=== PATIENT | female | born 1955 | race Caucasian/White ===

== ENCOUNTER 2017-03-06 11:51 | Inpatient (IN) | payer OTHER ==
[2017-03-06] MEDS ORDERED: Sodium Chloride 0.9% 1,000 ML IV ONE ×3 (13:08→16:01)
[2017-03-06] MEDS ORDERED: Sodium Chloride 0.9% 1,000 ML ONE ×2 (13:22→14:16)
[2017-03-06 13:43] LABS: BASO # 0.1 K/uL (0.0-0.2); BASO % 0.5 % (0.0-2.0); EOS % 0.3 % (0.0-4.0); HEMATOCRIT 36.7 % (34.0-47.0); LYMPH # 0.9 K/uL (1.0-4.3); LYMPH % 7.4 % (20.0-40.0); MEAN CELL VOLUME 79.9 fL (81.0-99.0); MEAN CORPUSCULAR HEMOGLOBIN 26.4 pg (27.0-31.0); MEAN PLATELET VOLUME 7.3 fL (7.2-11.7); MONO # 0.7 K/uL (0.0-0.8); MONO % 6.2 % (0.0-10.0); PLATELET COUNT 344 K/uL (130-400); RED CELL DISTRIBUTION WIDTH 14.2 % (11.5-14.5); WHITE BLOOD COUNT 11.6 K/uL (4.8-10.8)
[2017-03-06 13:48] LABS: POTASSIUM 4.2 mmol/L (3.6-5.2)
[2017-03-06 13:50] LABS: ALB/GLOB RATIO 1.2 (1.0-2.1); BILIRUBIN,TOTAL 1.2 mg/dL (0.2-1.3); TOTAL PROTEIN 7.6 g/dL (6.3-8.3)
[2017-03-06 13:51] LABS: CALCIUM 8.6 mg/dl (8.6-10.4)
--- NOTE | 2017-03-06 13:56 | C.PDOC ---
History Of Present Illness 61-year-old female, presents to the emergency department with complaints of diffuse abdominal pain greatest in upper abdomen, which started one week ago after she ate "street food." Pain is intermittent and non-radiating. Patient notes associated nausea with non-bilious/non-bloody vomiting. Patient seen by Dr Josue three days ago, who prescribed Flagyl and Zofran, that patient is taking with no relief. She notes that she is unable to tolerate PO intake, and has not urinated in two days. Patient denies fever, diarrhea, chest pain, shortness of breath. Time Seen by Provider: 03/06/17 12:22 Chief Complaint (Nursing): Abdominal Pain History Per: Patient History/Exam Limitations: no limitations Onset/Duration Of Symptoms: Days Past Medical History Reviewed: Historical Data, Nursing Documentation, Vital Signs Vital Signs: Last Vital Signs Temp 97.1 F L 03/06/17 17:27 Pulse 69 03/06/17 17:27 Resp 18 03/06/17 17:27 BP 125/79 03/06/17 17:27 Pulse Ox 96 03/06/17 17:27 - Medical History PMH: HTN, Kidney Stones Family History: States: No Known Family Hx - Social History Hx Alcohol Use: No Hx Substance Use: No - Immunization History Hx Influenza Vaccination: Yes Review Of Systems Except As Marked, All Systems Reviewed And Found Negative. Constitutional: Negative for: Fever Cardiovascular: Negative for: Chest Pain, Palpitations Respiratory: Negative for: Cough, Shortness of Breath Gastrointestinal: Positive for: Nausea, Vomiting, Abdominal Pain. Negative for : Diarrhea Musculoskeletal: Negative for: Back Pain Neurological: Negative for: Weakness, Numbness Physical Exam - Physical Exam Appears: Non-toxic, No Acute Distress, Other (mildly uncomfortable) Skin: Warm, Dry, No Rash Eye(s): bilateral: Normal Inspection, PERRL Oral Mucosa: Dry Neck: Normal ROM Cardiovascular: Rhythm Regular, No Murmur Respiratory: Normal Breath Sounds, No Accessory Muscle Use Gastrointestinal/Abdominal: Soft, Tenderness (mild, epigastric. (-)[place] sign) , No Guarding, No Rebound Extremity: Normal ROM Neurological/Psych: Oriented x3 ED Course And Treatment - Laboratory Results Result Diagrams: 03/06/17 13:36 03/06/17 16:15 ECG: Interpreted By Me, Viewed By Me (NSR 66bpm, left axis deviation, no acute ST/T wave changes) ECG Interpretation: No Acute Changes O2 Sat by Pulse Oximetry: 98 (RA) Pulse Ox Interpretation: Normal - Radiology CXR: Interpreted by Me, Viewed By Me (no infiltrates/effusions) - CT Scan/US CT abd pel Other Rad Studies (CT/US): Read By Radiologist, Radiology Report Reviewed CT/US Interpretation: Accession No. : [id number]. Patient Name / ID : TRA LA / [id number]. Exam Date : 03/06/2017 15:30:29 ( Approved ). Study Comment : Sex / Age : F / 61Y. Creator : Kings Taylor MD. Dictator : Kings Taylor MD. Cracker Dough Mixer : Vehicle Operator Technician : Kings Taylor MD. Approver2 : Report Date : 03/06/2017 16:08:04. My Comment : . PROCEDURE: CT Abdomen and Pelvis without intravenous contrast. HISTORY: elevated lipase, severe abd pain. COMPARISON: None. TECHNIQUE: Without contrast.. Contrast Dose: 0. Radiation dose: Total exam DLP = 310.83 mGy-cm. This CT exam was performed using one or more of the following dose reduction techniques: Automated exposure control, adjustment of the mA and/or kV according to patient size, and/or use of iterative reconstruction technique. FINDINGS: LOWER THORAX : 6 mm noncalcified nodule right lower lobe (series 5, image 9). Indeterminate pleural thickening along diaphragmatic pleural surface with adjacent linear parenchymal scar. Uncertain significance. Possible postinflammatory. Cannot rule out neoplastic etiology. 6 mm pleural-based nodule in left lower lobe ( image 16). 6-12 month followup noncontrast chest CT examination is advised for these bilateral 6 mm nodules. Please note that there punctate granulomatous calcifications noted in the left lower lobe, only evident on soft tissue windows. Most clearly seen on series 3, image 19 in the left lower lobe. LIVER : Unremarkable. No gross lesion or ductal dilatation. GALLBLADDER AND BILE DUCTS: Unremarkable. PANCREAS: No mass. No ductal dilatation. No peripancreatic fluid. There is vague infiltration of the retroperitoneal fat common nonspecific. This could reflect pancreatitis. This is most clearly seen on series 3, image 82. This is beneath the pancreatic tail. SPLEEN: Unremarkable. ADRENALS: Unremarkable. No mass. KIDNEYS AND URETERS: Bilateral hydronephrosis. Obstructing 9 mm proximal left ureteral calculus. Obstructing 18 mm calculus likely at or just distal to the ureteropelvic junction. Milk of calcium urine in right kidney. Multiple nonobstructing small left renal calculi. No renal mass. Right hydronephrosis more severe than the left hydronephrosis. . VASCULATURE: Unremarkable. No aortic aneurysm. BOWEL: Unremarkable. No obstruction. No gross mural thickening. APPENDIX: Unremarkable. Normal appendix. PERITONEUM: Unremarkable. No free fluid. No free air. LYMPH NODES: Unremarkable. No enlarged lymph nodes. BLADDER: Bladder decompressed. REPRODUCTIVE: Right adnexal mass with numerous coarse calcifications, possibly pedunculated subserosal fibroid. This measures 2.8 x 4.4 x 5.5 cm. Cannot rule out calcified right ovarian neoplasm. Recommend further evaluation with pelvic ultrasound. BONES: No acute fracture. OTHER FINDINGS: None. IMPRESSION: Bilateral obstructing urinary calculi with bilateral hydronephrosis, right greater than left. Probable long-standing right- sided obstruction with more extensive hydronephrosis and milk of calcium urine in renal pelvis. Possible mild acute pancreatitis inferior to pancreatic tail. Calcified old granulomas left lower lobe. Bilateral small pulmonary nodules, 6 mm, for which followup noncontrast chest CT examination is advised in 6-12 months. Curvilinear pleural thickening along left diaphragmatic dome, nonspecific. Possibly postinflammatory but cannot rule out neoplastic etiology. Right adnexal mass with extensive calcification, 5.5 cm greatest dimension. Ovarian versus uterine origin. Recommend further evaluation with pelvic ultrasound. Progress Note: Bloodwork, CT Abd/Pel and UA ordered and reviewed. Patient treated with IV Pepcid, IV NS bolus x 2, and IV Zofran. Lipase noted to be elevated, and patient still having pain, IV morphine ordered. 4:36pm-Spoke w/ Dr Josue, she would like patient admitted under hospitalist service. 4:55pm- Spoke with Dr. Alarcon, he will take patient to OR for stenting in approx 1 hour. 5:15PM- Dr. France nephrology spoken with, will see patient on nephro consult. - Physician Consult Information Physician Contacted: Ross Benavidez Outcome Of Conversation: Spoke with Dr. Benavidez, agrees with admission to hospitalist service. Drs. Campbell and Dorian consulted. Critical Care Time - Critical Care Note Total Time (in mins): 40 Documented critical care: time excludes all time spent performing seperately billable procedures. Medical Decision Making Medical Decision Making: differential diagnoses considered: acute renal failure, dehydration, obstructing kidney stones/hydronephrosis, pancreatitis, cholecystitis Disposition Counseled Patient/Family Regarding: Rx Given - Disposition Disposition: HOSPITALIZED Disposition Time: 16:42 Condition: STABLE - Clinical Impression Clinical Impression: Pancreatitis, Hydronephrosis, Bilateral kidney stones, Acute renal failure, Dehydration - Scribe Statement The provider has reviewed the documentation as recorded by the Mayra Orlando All medical record entries made by the Youngibchaya were at my direction and personally dictated by me. I have reviewed the chart and agree that the record accurately reflects my personal performance of the history, physical exam, medical decision making, and the department course for this patient. I have also personally directed, reviewed, and agree with the discharge instructions and disposition.
[2017-03-06 14:04] LABS: EOSINOPHIL 1 % (0-4); NEUTROPHIL 88 % (50-75); TOTAL CELLS COUNTED 100
[2017-03-06] MEDS ORDERED: Morphine 4 MG/ML VIAL ONE ×2 (14:15→16:01)
--- NOTE | 2017-03-06 16:09 | CT ---
PROCEDURE: CT Abdomen and Pelvis without intravenous contrast HISTORY: elevated lipase, severe abd pain COMPARISON: None. TECHNIQUE: Without contrast.. Contrast Dose: 0 Radiation dose: Total exam DLP = 310.83 mGy-cm. This CT exam was performed using one or more of the following dose reduction techniques: Automated exposure control, adjustment of the mA and/or kV according to patient size, and/or use of iterative reconstruction technique. FINDINGS: LOWER THORAX: 6 mm noncalcified nodule right lower lobe (series 5, image 9). Indeterminate pleural thickening along diaphragmatic pleural surface with adjacent linear parenchymal scar. Uncertain significance. Possible postinflammatory. Cannot rule out neoplastic etiology. 6 mm pleural-based nodule in left lower lobe (image 16). 6-12 month followup noncontrast chest CT examination is advised for these bilateral 6 mm nodules. Please note that there punctate granulomatous calcifications noted in the left lower lobe, only evident on soft tissue windows. Most clearly seen on series 3, image 19 in the left lower lobe. LIVER: Unremarkable. No gross lesion or ductal dilatation. GALLBLADDER AND BILE DUCTS: Unremarkable. PANCREAS: No mass. No ductal dilatation. No peripancreatic fluid. There is vague infiltration of the retroperitoneal fat common nonspecific. This could reflect pancreatitis. This is most clearly seen on series 3, image 82. This is beneath the pancreatic tail. SPLEEN: Unremarkable. ADRENALS: Unremarkable. No mass. KIDNEYS AND URETERS: Bilateral hydronephrosis. Obstructing 9 mm proximal left ureteral calculus. Obstructing 18 mm calculus likely at or just distal to the ureteropelvic junction. Milk of calcium urine in right kidney. Multiple nonobstructing small left renal calculi. No renal mass. Right hydronephrosis more severe than the left hydronephrosis. . VASCULATURE: Unremarkable. No aortic aneurysm. BOWEL: Unremarkable. No obstruction. No gross mural thickening. APPENDIX: Unremarkable. Normal appendix. PERITONEUM: Unremarkable. No free fluid. No free air. LYMPH NODES: Unremarkable. No enlarged lymph nodes. BLADDER: Bladder decompressed. REPRODUCTIVE: Right adnexal mass with numerous coarse calcifications, possibly pedunculated subserosal fibroid. This measures 2.8 x 4.4 x 5.5 cm. Cannot rule out calcified right ovarian neoplasm. Recommend further evaluation with pelvic ultrasound. BONES: No acute fracture. OTHER FINDINGS: None. IMPRESSION: Bilateral obstructing urinary calculi with bilateral hydronephrosis, right greater than left. Probable long-standing right-sided obstruction with more extensive hydronephrosis and milk of calcium urine in renal pelvis. Possible mild acute pancreatitis inferior to pancreatic tail. Calcified old granulomas left lower lobe. Bilateral small pulmonary nodules, 6 mm, for which followup noncontrast chest CT examination is advised in 6-12 months. Curvilinear pleural thickening along left diaphragmatic dome, nonspecific. Possibly postinflammatory but cannot rule out neoplastic etiology. Right adnexal mass with extensive calcification, 5.5 cm greatest dimension. Ovarian versus uterine origin. Recommend further evaluation with pelvic ultrasound.
[2017-03-06 16:27] LABS: POTASSIUM 4.2 mmol/L (3.6-5.2)
[2017-03-06 16:30] LABS: CALCIUM 7.2 mg/dl (8.6-10.4)
[2017-03-06] MEDS ORDERED: HYDROmorphone 0.5 mg/0.5 ml ISec IVP PRN (18:07)
--- NOTE | 2017-03-06 18:18 | CP.PCM.HP ---
<Katie Boggs - Last Filed: 03/06/17 18:11> History of Present Illness - History of Present Illness History of Present Illness: CC - "Abdominal pain" HPI - 61-year-old female, presents to the emergency department with complaints of diffuse abdominal pain greatest in upper abdomen, which started one week ago after she ate "street food" on . Pain is intermittent and non- radiating relieved with Motrin but then it will return. Patient notes associated nausea with non-bilious/non-bloody vomiting. She vomited once today. Patient seen by Dr Josue three days ago, who prescribed Flagyl and Zofran, that patient is taking with no relief. She notes that she is unable to tolerate PO intake, and has not urinated in two days. She denies flank or back pain or dyuria but has really noticed a decrease in her urine output. Patient denies fever, diarrhea, chest pain, shortness of breath, pain, swelling numbness in the extremities. PMHx - DM, HTN, kidney stones one year ago which had to be removed Meds - Glipizide 2.5 mg PO daily, Sisoprolol 5mg PO daily, HCTz 6.25 PO daily, Ibuprofen prn pain, given Metronidazole on 03/03 Allergies - NKDA, no reaction to anesthesia in the past Surg - "kidney stone removal" FamHx - father DM, no hx of cancer, stroke, [place] Social - denies drug, tobacco, or alcohol PMD - Liat Last time she ate: yesterday Present on Admission - Present on Admission Any Indicators Present on Admission: No Review of Systems - Constitutional Constitutional: absent: Chills, Fever - EENT Ears: absent: Dizziness - Cardiovascular Cardiovascular: absent: Chest Pain, Chest Pain at Rest, Palpitations, Pedal Edema, Syncope - Respiratory Respiratory: absent: Cough, Dyspnea, Dyspnea on Exertion - Gastrointestinal Gastrointestinal: Abdominal Pain, Bloating, Constipation, Nausea, Vomiting. absent: Diarrhea, Hematemesis - Genitourinary Genitourinary: Change in Urinary Stream, Difficulty Urinating, Bladder Distension. absent: Dysuria, Hematuria, Urinary Incontinence - Musculoskeletal Musculoskeletal: absent: Abnormal Gait, Numbness, Tingling - Neurological Neurological: absent: Dizziness, Numbness, Syncope, Tingling, Weakness Past Patient History - Infectious Disease Hx of Infectious Diseases: None - Past Social History Smoking Status: Never Smoked - CARDIAC Hx Hypertension: Yes - RENAL Hx Kidney Stones: Yes - ENDOCRINE/METABOLIC Hx Diabetes Mellitus Type 2: Yes - PSYCHIATRIC Hx Substance Use: No - SURGICAL HISTORY Hx Surgeries: Yes Other/Comment: TURP - ANESTHESIA Hx Anesthesia: Yes Hx Anesthesia Reactions: No Meds Allergies/Adverse Reactions: Allergies Allergy/AdvReac Type Severity Reaction Status Date / Time No Known Allergies Allergy Verified 03/06/17 11:54 Physical Exam - Constitutional Appears: Non-toxic, No Acute Distress - Head Exam Head Exam: ATRAUMATIC, NORMAL INSPECTION - Eye Exam Eye Exam: EOMI, Normal appearance, PERRL Pupil Exam: NORMAL ACCOMODATION - ENT Exam ENT Exam: Mucous Membranes Dry. absent: Mucous Membranes Moist - Respiratory Exam Respiratory Exam: Clear to Auscultation Bilateral, NORMAL BREATHING PATTERN. absent: Accessory Muscle Use, Rales, Wheezes, Respiratory Distress - Cardiovascular Exam Cardiovascular Exam: REGULAR RHYTHM, +S1, +S2 - GI/Abdominal Exam GI & Abdominal Exam: Distended, Normal Bowel Sounds, Soft, Tenderness. absent: Firm, Guarding Additional comments: generalized - Extremities Exam Extremities exam: Positive for: normal inspection. Negative for: calf tenderness, pedal edema - Back Exam Back exam: NORMAL INSPECTION. absent: CVA tenderness (L), CVA tenderness (R), paraspinal tenderness - Neurological Exam Neurological exam: Alert, CN II-XII Intact, Normal Gait, Oriented x3 - Psychiatric Exam Psychiatric exam: Normal Affect, Normal Mood - Skin Skin Exam: Dry, Intact, Normal Color, Warm Results - Vital Signs Recent Vital Signs: Last Vital Signs Temp 97.1 F L 03/06/17 17:27 Pulse 69 03/06/17 17:27 Resp 18 03/06/17 17:27 BP 125/79 03/06/17 17:27 Pulse Ox 96 03/06/17 17:27 - Labs Result Diagrams: 03/06/17 13:36 03/06/17 16:15 Assessment & Plan - Assessment and Plan (Free Text) Assessment: 61 F with PMHX DM, HTN, nephrolithiasis admitted for acute pancreatitis and acute kidney injury due to obstructing caluculi with b/l hydronephrosis: Plan: Bilateral obstructing Renal Calculi with b/l hydronephrosis per CT scan Dr. Alarcon urology consulted, help appreciated - For OR immediately for stenting Patient is cleared for surgery EKG/Chest X ray reviewed Labs/coag ordered Patient last ate yesterday rahul Acute kidney injury secondary to obstructing renal calculi BUN/CR 86/9.2 Nephrology consulted, Shannan Saunders, help appreciated D5NS at 200 cc/hour Pancreatitis f/u abd US Lipase 2378 f/u lipid panel NPO given 3 L of fluids in ED D5NS at 200 cc/hour DM Accuchecks ISS hold home med Glipizde 2.5 mg PO daily HTN Bisoprolol 5mg PO daily Hold HCTC 6.25 mg PO daily monitor BP controlled Lung nodule Incidental finding on CT 6 mm - f/u CT rec in 6-12 months R adnexal mass Incidental finding 5.5cm f/u transvaginal US Prophylactic Measures NPO Pepcid IV No chemical anticoagulation - going to OR this evening <Ross Benavidez - Last Filed: 03/06/17 18:34> Results - Vital Signs Recent Vital Signs: Last Vital Signs Temp 97.1 F L 03/06/17 17:27 Pulse 69 03/06/17 17:27 Resp 18 03/06/17 17:27 BP 125/79 03/06/17 17:27 Pulse Ox 98 03/06/17 18:22 - Labs Result Diagrams: 03/06/17 13:36 03/06/17 16:15 Attending/Attestation - Attestation I have personally seen and examined this patient.: Yes I have fully participated in the care of the patient.: Yes I have reviewed all pertinent clinical information: Yes Notes (Text): 03/06/17 18:32 Patient was seen and examined at bedside with the resident at the time of admission I reviewed patient's medical record, labs, imaging studies. I discussed the plan of care with the resident I agree with the above history and physical and assessment/plan by the resident. Patient is medically cleared for urgent urological procedure in view of the acute renal failure.
[2017-03-06] MEDS ORDERED: Sodium Citrate/Citric Acid 15 ml Sol ONE (18:22)
[2017-03-06] MEDS ORDERED: Ciprofloxacin 400mg/200ml D5W 400 MG/200 ML BAG IVPB ONE (18:44)
[2017-03-06] MEDS ORDERED: Iohexol 240 (50 ml) ONE (18:44)
[2017-03-06] MEDS: Lactated Ringer's 1,000 ML IV ONE ×2 (18:45→19:52)
[2017-03-06] MEDS ORDERED: Propofol 10 mg/ml Inj (20 ML) ONE (18:46)
[2017-03-06] MEDS ORDERED: Midazolam 2 MG/2 ML VIAL ONE (18:46)
--- NOTE | 2017-03-06 19:45 | PCM.SURG1 ---
Surgeon's Initial Post Op Note - Surgeon's Notes Surgeon: Dr. Alarcon Elderly Caregiver: Dr. Bailon PGY-2 Type of Anesthesia: General Endo Anesthesia Administered By: Dr. Esposito Pre-Operative Diagnosis: b/l Nephrolithiasis Operative Findings: see operative report Post-Operative Diagnosis: same Operation Performed: Cystoscopy, retrograde ureteroscopy with b/l ureteral stents Specimen/Specimens Removed: none Estimated Blood Loss: EBL {In ML}: 3 Blood Products Given: N/A Drains Used: No Drains Post-Op Condition: Fair Date of Surgery/Procedure: 03/06/17 Time of Surgery/Procedure: 19:45
[2017-03-06] MEDS ORDERED: Lactated Ringer's 1,000 ML IV ONE (23:00)
[2017-03-07] MEDS: Dextrose 5%/0.9% NS 1,000 ML IV SCH ×5 (00:35→14:15)
[2017-03-07 01:10] VITALS: RESP 20
--- NOTE | 2017-03-07 07:22 | RAD ---
PROCEDURE: CHEST RADIOGRAPH, 1 VIEW HISTORY: Shortness of breath COMPARISON: None available. FINDINGS: LUNGS: Mild venous congestion. Patchy increased markings at the lung bases. More linear increased consolidative changes at the left lung base which may represent atelectasis and or infiltrate versus additional etiology. Bilateral hilar prominence. Diffuse increased interstitial lung markings. Biapical pleural thickening with upper lobe granulomatous changes. PLEURA: No pneumothorax or pleural fluid seen. CARDIOVASCULAR: Normal. OSSEOUS STRUCTURES: No significant abnormalities. VISUALIZED UPPER ABDOMEN: Normal. OTHER FINDINGS: None. IMPRESSION: Mild venous congestion. Patchy increased markings at the lung bases. More linear increased consolidative changes at the left lung base which may represent atelectasis and or infiltrate versus additional etiology. Bilateral hilar prominence. Diffuse increased interstitial lung markings. Biapical pleural thickening with upper lobe granulomatous changes.
[2017-03-07 08:25] LABS: BASO % 0.4 % (0.0-2.0); EOS # 0.1 K/uL (0.0-0.7); EOS % 1.5 % (0.0-4.0); HEMATOCRIT 34.4 % (34.0-47.0); LYMPH # 1.1 K/uL (1.0-4.3); LYMPH % 16.4 % (20.0-40.0); MEAN CELL VOLUME 80.3 fL (81.0-99.0); MEAN CORPUSCULAR HEMOGLOBIN 27.4 pg (27.0-31.0); MEAN CORPUSCULAR HGB CONC 34.1 g/dL (33.0-37.0); MEAN PLATELET VOLUME 7.5 fL (7.2-11.7); MONO # 0.5 K/uL (0.0-0.8); MONO % 8.1 % (0.0-10.0); RED CELL DISTRIBUTION WIDTH 14.3 % (11.5-14.5); WHITE BLOOD COUNT 6.6 K/uL (4.8-10.8)
[2017-03-07] MEDS: (Novolin R) Insulin Human Regular 100 units/ml vial SC SCH ×4 (08:30→22:16)
[2017-03-07 08:45] LABS: POTASSIUM 3.9 mmol/L (3.6-5.2)
[2017-03-07 08:47] LABS: BILIRUBIN,TOTAL 0.8 mg/dL (0.2-1.3); TOTAL PROTEIN 6.3 g/dL (6.3-8.3)
[2017-03-07 08:48] LABS: CALCIUM 7.7 mg/dl (8.6-10.4); MAGNESIUM 1.7 mg/dL (1.6-2.3); PHOSPHOROUS 5.1 mg/dL (2.5-4.5)
--- NOTE | 2017-03-07 09:42 | US ---
Abdominal ultrasound History: Renal calculi and stents. Comparison: CT scan dated 03/06/2017 Technique: Real-time sonography was performed through the abdomen. Findings: Liver: 19.2 centimeters in length, prominent. Increased echogenicity of the hepatic parenchymal cortex suggestive for hepatic parenchymal disease versus fatty infiltration. Gallbladder: Within normal limits. No calculi or sludge. Normal wall thickness of 1.6 millimeters. Common bile duct measures 4 millimeters, within normal limits. Visualized portions of the pancreas are preserved. Pancreatic tail not well visualized. Spleen measures 12.7 centimeters in length, mildly prominent. Visualized aorta and IVC are preserved. Right kidney: 12.3 x 5.3 x 5.7 centimeters. Cortical parenchymal thinning. Increased echogenicity of the renal cortex suggestive for medical renal disease. Mild to moderate hydronephrosis. Renal stents in place. Renal calculi noted for example measuring up to 1.5 and 2 centimeters respectively. Left kidney: 14.2 x 6.8 x 6.7 centimeters. Increased echogenicity of the renal cortex suggestive for medical renal disease. Cortical parenchymal thinning. Mild to moderate hydronephrosis. Renal stent in place. Scattered calculi for example a calculus measures up to 9 millimeters. Incidentally noted are bilateral ureteral stents entering the urinary bladder. Impression: Bilateral renal stents noted. Persistent mild to moderate bilateral renal hydronephrosis with scattered calculi. Hepatomegaly with increased echogenicity of the hepatic parenchymal cortex suggestive for fatty infiltration versus hepatic parenchymal disease. Mild prominence of the spleen.
[2017-03-07] MEDS: Sodium Chloride 0.9% 1,000 ML IV SCH ×3 (09:53→19:15)
--- NOTE | 2017-03-07 10:57 | CP.PCM.PN ---
<Katie Boggs - Last Filed: 03/07/17 14:56> Subjective - Date & Time of Evaluation Date of Evaluation: 03/07/17 Time of Evaluation: 07:20 - Subjective Subjective: Pt seen and examined ta bedside. She reports that she eels much bettter as she is in no pain and she is now able to urinate. She has been NPO but denies nausea and vomiting nad states that she is hungry and would like to eat. Denies headache, changes in vision, fevers, chills, chest pain, shortness of breath, abdominal pain, pain/swelling of the extremities. She is s/p bilateral uretal stent placement. Objective - Vital Signs/Intake and Output Vital Signs (last 24 hours): Temp Pulse Resp BP Pulse Ox 97.7 F 75 20 111/67 98 03/07/17 07:35 03/07/17 10:02 03/07/17 07:35 03/07/17 10:02 03/07/17 07:35 Intake and Output: 03/07/17 03/07/17 06:59 18:59 Intake Total 1720 Output Total 450 Balance 1270 - Medications Medications: Current Medications Bisoprolol Fumarate (Zebeta) 5 mg PO DAILY [facility] Last Admin: 03/07/17 10:29 Dose: 5 mg Ciprofloxacin (Cipro) 500 mg PO BID [facility] Last Admin: 03/07/17 10:04 Dose: 500 mg Dextrose/Sodium Chloride (Dextrose 5%/0.9% Ns 1000 Ml) 1,000 mls @ 200 mls/hr IV .Q5H [facility] Last Admin: 03/07/17 07:24 Dose: Not Given Sodium Chloride (Sodium Chloride 0.9%) 1,000 mls @ 200 mls/hr IV .Q5H [facility] Last Admin: 03/07/17 09:53 Dose: 200 mls/hr Insulin Human Regular (Novolin R) 0 unit SC ACHS [facility] PRN Reason: Protocol Last Admin: 03/07/17 08:30 Dose: Not Given Morphine Sulfate (Morphine) 2 mg IVP Q4H PRN PRN Reason: Pain, moderate (4-7) Ondansetron HCl (Zofran Inj) 4 mg IVP Q6 PRN PRN Reason: Nausea/Vomiting - Labs Labs: 03/07/17 08:17 03/07/17 08:17 - Constitutional Appears: Non-toxic, No Acute Distress - Head Exam Head Exam: ATRAUMATIC, NORMOCEPHALIC - Eye Exam Eye Exam: EOMI, Normal appearance. absent: Scleral icterus - ENT Exam ENT Exam: Mucous Membranes Moist - Respiratory Exam Respiratory Exam: Clear to Ausculation Bilateral, NORMAL BREATHING PATTERN. absent: Respiratory Distress - Cardiovascular Exam Cardiovascular Exam: REGULAR RHYTHM, +S1, +S2. absent: JVD - GI/Abdominal Exam GI & Abdominal Exam: Soft, Normal Bowel Sounds. absent: Distended, Firm, Guarding, Tenderness - Extremities Exam Extremities Exam: Normal Inspection. absent: Calf Tenderness, Pedal Edema, Tenderness - Back Exam Back Exam: NORMAL INSPECTION - Neurological Exam Neurological Exam: Alert, Awake, Normal Gait, Oriented x3 - Psychiatric Exam Psychiatric exam: Normal Affect, Normal Mood - Skin Skin Exam: Dry, Intact, Normal Color, Warm Assessment and Plan - Assessment and Plan (Free Text) Assessment: 61 F with PMHX DM, HTN, nephrolithiasis admitted for acute pancreatitis and acute kidney injury due to obstructing caluculi with b/l hydronephrosis: Plan: Bilateral obstructing Renal Calculi with b/l hydronephrosis per CT scan status post b/l ureter stent placement on 03/06 Dr. Alarcon urology consulted, help appreciated Patient is cleared for surgery EKG/Chest X ray reviewed Labs/coags ordered BUN/Cr 67/5.4 will repeat this afternoon BUN/CR 86/9.2 on admission Cipro 500mg PO BID (started 03/06) f/u am labs Acute kidney injury secondary to obstructing renal calculi status post b/l ureter stent placement on 03/06 BUN/Cr 67/5.4 BUN/CR 86/9.2 on admission Nephrology consulted, Shannan Saunders, help appreciated NS at 200 cc/hour Pancreatitis improving - no nausea/vomiting, no abdominal pain abdominal u/s suggestive of fatty liver, no gallstones (please see full report) Lipase 2378 CLD given 3 L of fluids in ED NS at 200 cc/hour T Total Chol: 216 LDL: 103 HDL: 27 consider SAM and statin use once kidney function improves DM Accuchecks ISS hold home med Glipizde 2.5 mg PO daily HgbA1C: 9.7 HTN Bisoprolol 5mg PO daily Hold HCTC 6.25 mg PO daily monitor BP controlled Lung nodule Incidental finding on CT 6 mm - f/u CT rec in 6-12 months pt aware and states she will f/u R adnexal mass Incidental finding 5.5cm recommend transvaginal u/s - pt states that she is aware of mass and is refusing u/s, stating "this has been checked out before and it is fine" Prophylactic Measures Full liquid diet - advance as tolerated Pepcid IV SCDs - pt is ambulating NS @ 200 cc/hr <Ross Benavidez - Last Filed: 03/07/17 15:44> Objective - Vital Signs/Intake and Output Vital Signs (last 24 hours): Temp Pulse Resp BP Pulse Ox 97.7 F 75 20 111/67 98 03/07/17 07:35 03/07/17 10:02 03/07/17 07:35 03/07/17 10:02 03/07/17 07:35 Intake and Output: 03/07/17 03/07/17 06:59 18:59 Intake Total 1720 Output Total 450 Balance 1270 - Medications Medications: Current Medications Bisoprolol Fumarate (Zebeta) 5 mg PO DAILY [facility] Last Admin: 03/07/17 10:29 Dose: 5 mg Ciprofloxacin (Cipro) 500 mg PO BID [facility] Last Admin: 03/07/17 10:04 Dose: 500 mg Dextrose/Sodium Chloride (Dextrose 5%/0.9% Ns 1000 Ml) 1,000 mls @ 200 mls/hr IV .Q5H [facility] Last Admin: 03/07/17 07:24 Dose: Not Given Sodium Chloride (Sodium Chloride 0.9%) 1,000 mls @ 200 mls/hr IV .Q5H [facility] Last Admin: 03/07/17 15:20 Dose: 200 mls/hr Insulin Human Regular (Novolin R) 0 unit SC ACHS [facility] PRN Reason: Protocol Last Admin: 03/07/17 13:42 Dose: 3 unit Morphine Sulfate (Morphine) 2 mg IVP Q4H PRN PRN Reason: Pain, moderate (4-7) Ondansetron HCl (Zofran Inj) 4 mg IVP Q6 PRN PRN Reason: Nausea/Vomiting - Labs Labs: 03/07/17 08:17 06/06/17 08:17 Attending/Attestation - Attestation I have personally seen and examined this patient.: Yes I have fully participated in the care of the patient.: Yes I have reviewed all pertinent clinical information, including history, physical exam and plan: Yes Notes (Text): 03/07/17 15:43 Patient was seen and examined at bedside with the resident She is status post the ureteral stent placement Renal function is improving Continue current management I discussed the plan of care with the resident and agree with the above history and physical and assessment/plan.
--- NOTE | 2017-03-07 11:30 | CP.PCM.CON ---
History of Present Illness - History of Present Illness History of Present Illness: 61 y/o female with Hx/o HTN, DM 11, uric acid stones presented to ER for c/o severe abdominal pain. CT scan of abdomen had revealed large B/L obstructing kidney stones & large B/L hydronephrosis. [place] B/L ureteral stents placement Lab results showed BUN/Creat of 94/9.9 Past Patient History - Infectious Disease Hx of Infectious Diseases: None - Past Social History Smoking Status: Never Smoked - CARDIAC Hx Hypertension: Yes - RENAL Hx Kidney Stones: Yes - ENDOCRINE/METABOLIC Hx Diabetes Mellitus Type 2: Yes - MUSCULOSKELETAL/RHEUMATOLOGICAL Hx Falls: No - PSYCHIATRIC Hx Substance Use: No - SURGICAL HISTORY Hx Surgeries: Yes Other/Comment: TURP - ANESTHESIA Hx Anesthesia: Yes Hx Anesthesia Reactions: No Meds Allergies/Adverse Reactions: Allergies Allergy/AdvReac Type Severity Reaction Status Date / Time No Known Allergies Allergy Verified 03/06/17 11:54 - Medications Medications: Current Medications Bisoprolol Fumarate (Zebeta) 5 mg PO DAILY [facility] Last Admin: 03/07/17 10:29 Dose: 5 mg Ciprofloxacin (Cipro) 500 mg PO BID [facility] Last Admin: 03/07/17 10:04 Dose: 500 mg Dextrose/Sodium Chloride (Dextrose 5%/0.9% Ns 1000 Ml) 1,000 mls @ 200 mls/hr IV .Q5H [facility] Last Admin: 03/07/17 07:24 Dose: Not Given Sodium Chloride (Sodium Chloride 0.9%) 1,000 mls @ 200 mls/hr IV .Q5H [facility] Last Admin: 03/07/17 09:53 Dose: 200 mls/hr Insulin Human Regular (Novolin R) 0 unit SC ACHS [facility] PRN Reason: Protocol Last Admin: 03/07/17 08:30 Dose: Not Given Morphine Sulfate (Morphine) 2 mg IVP Q4H PRN PRN Reason: Pain, moderate (4-7) Ondansetron HCl (Zofran Inj) 4 mg IVP Q6 PRN PRN Reason: Nausea/Vomiting Physical Exam - Constitutional Appears: No Acute Distress - Head Exam Head Exam: ATRAUMATIC, NORMOCEPHALIC - Eye Exam Additional comments: Conjunctiva pink, sclera anicteric - ENT Exam ENT Exam: Mucous Membranes Dry - Neck Exam Additional comments: Neck supple - Respiratory Exam Additional comments: Lungs clear - Cardiovascular Exam Cardiovascular Exam: REGULAR RHYTHM - GI/Abdominal Exam Additional comments: Abdomen is soft & nontender. No CVA tenderness - Extremities Exam Additional comments: No edema or cyanosis Results - Vital Signs Recent Vital Signs: Last Vital Signs Temp 97.7 F 03/07/17 07:35 Pulse 75 03/07/17 10:02 Resp 20 03/07/17 07:35 BP 111/67 03/07/17 10:02 Pulse Ox 98 03/07/17 07:35 - Labs Result Diagrams: 03/07/17 08:17 03/07/17 08:17 Labs: Laboratory Results - last 24 hr 03/06/17 03/06/17 03/07/17 19:56 21:26 06:57 WBC RBC Hgb Hct MCV MCH MCHC RDW Plt Count MPV Neut % (Auto) Lymph % (Auto) [place] % (Auto) Eos % (Auto) Baso % (Auto) Neut # Lymph # [place] # Eos # Baso # Sodium Potassium Chloride Carbon Dioxide Anion Gap BUN Creatinine Est GFR ( Amer) Est GFR (Non-Af Amer) POC Glucose (mg/dL) 196 H 170 H 301 H Random Glucose Hemoglobin A1c Calcium Phosphorus Magnesium Total Bilirubin AST ALT Alkaline Phosphatase Total Protein Albumin Globulin Albumin/Globulin Ratio Triglycerides Cholesterol LDL Cholesterol Direct HDL Cholesterol 03/07/17 03/07/17 03/07/17 08:17 08:17 08:17 WBC 6.6 RBC 4.29 Hgb 11.7 Hct 34.4 MCV 80.3 L MCH 27.4 MCHC 34.1 RDW 14.3 Plt Count 304 MPV 7.5 Neut % (Auto) 73.6 Lymph % (Auto) 16.4 L [place] % (Auto) 8.1 Eos % (Auto) 1.5 Baso % (Auto) 0.4 Neut # 4.8 Lymph # 1.1 [place] # 0.5 Eos # 0.1 Baso # 0.0 Sodium 138 Potassium 3.9 Chloride 103 Carbon Dioxide 23 Anion Gap 16 BUN 67 H Creatinine 5.4 H Est GFR ( Amer) 10 Est GFR (Non-Af Amer) 8 POC Glucose (mg/dL) Random Glucose 260 H Hemoglobin A1c 9.7 H Calcium 7.7 L Phosphorus 5.1 H Magnesium 1.7 Total Bilirubin 0.8 AST 14 ALT 14 Alkaline Phosphatase 68 Total Protein 6.3 Albumin 3.2 L D Globulin 3.1 Albumin/Globulin Ratio 1.0 Triglycerides 303 H Cholesterol 216 H LDL Cholesterol Direct 103 HDL Cholesterol 27 L 03/07/17 11:03 WBC RBC Hgb Hct MCV MCH MCHC RDW Plt Count MPV Neut % (Auto) Lymph % (Auto) [place] % (Auto) Eos % (Auto) Baso % (Auto) Neut # Lymph # [place] # Eos # Baso # Sodium Potassium Chloride Carbon Dioxide Anion Gap BUN Creatinine Est GFR ( Amer) Est GFR (Non-Af Amer) POC Glucose (mg/dL) 205 H Random Glucose Hemoglobin A1c Calcium Phosphorus Magnesium Total Bilirubin AST ALT Alkaline Phosphatase Total Protein Albumin Globulin Albumin/Globulin Ratio Triglycerides Cholesterol LDL Cholesterol Direct HDL Cholesterol Assessment & Plan - Assessment and Plan (Free Text) Assessment: DONALD secondary to obstructive uropathy B/L obstructiong kidney stones S/P placement of ureteral stents yesterday Hx/o uric acid stones HTN DM 11 Plan: Marked improvement in renal function after stenting & hydration Continue with hydration Urinalysis, uric acid mx of kidney stones per Urology
--- NOTE | 2017-03-07 11:52 | CARD ---
APPROVED REPORT EKG Measurement Heart [id number] 136P-6 [id number] <Conclusion> Normal sinus rhythm Left axis deviation Abnormal ECG
--- NOTE | 2017-03-07 13:56 | CON ---
DATE: 03/07/2017 This is a 61-year-old female admitted with bilateral hydronephrosis secondary to obstructing proximal UPJ obstructive calculi. The patient brought to the OR, prepped and draped in the usual manner. After general anesthesia give n, a #21 cystourethroscope was introduced in the bladder. An 0.035 wire was inserted right and left orifices into the kidney and after the wire was inserted on left and right, a double-J stent was then inserted in each kidney with removal of the wire. There was good placement of double-J stents. The patient tolerated procedure well, left the OR in good condition. Donald Alarcon MD cc: [id number] TT: 03/07/2017 13:55:39 Confirmation # [id number] Dictation # [id number]
--- NOTE | 2017-03-07 15:30 | RAD ---
HISTORY: B/L STENT INSERTION COMPARISON: No prior. FINDINGS: BOWEL: Normal. No obstruction. No free air. Nasogastric tube identified in the stomach. BONES: Normal. OTHER FINDINGS: Recently placed bilateral double-J stent catheters in good position. IMPRESSION: S/p double-J stent catheter placements bilaterally.
--- NOTE | 2017-03-07 16:57 | RAD ---
PROCEDURE: Bilateral stent insertion HISTORY: B/L STENT INSERTION COMPARISON: None TECHNIQUE: Total fluoroscopic time 15.8 second. 1347.2 mGy does FINDINGS: Submitted images for the current procedure to IMPRESSION: Less than 1 hour of fluoroscopic time utilized during the performance of the procedure
[2017-03-07 20:06] LABS: RBC URINE 710 /hpf (0-3); TRANSITIONAL EPITHIAL 6 /hpf (0-3); URINE BACTERIA MANY (<OCC); URINE BILIRUBIN NEGATIVE (NEGATIVE); URINE BLOOD 3+ (NEGATIVE); URINE COLOR Yellow (YELLOW); URINE GLUCOSE (UA) 1+ mg/dL (Normal); URINE KETONE NEGATIVE (NEGATIVE); URINE LEUKOCYTE ESTERASE 3+ Leu/uL (Negative); URINE PROTEIN 1+ mg/dL (NEGATIVE); URINE UROBILINOGEN NORMAL mg/dL (0.2-1.0); WBC CLUMPS FEW /hpf; WBC URINE 559 /hpf (0-5)
[2017-03-08] MEDS: Dextrose 5%/0.9% NS 1,000 ML IV SCH (00:15)
[2017-03-08] MEDS: Sodium Chloride 0.9% 1,000 ML IV SCH ×2 (00:20→09:46)
--- NOTE | 2017-03-08 07:23 | CP.PCM.PN ---
Subjective - Date & Time of Evaluation Date of Evaluation: 03/08/17 Time of Evaluation: 07:10 - Subjective Subjective: Pt seen and examined the bedside. She reports that she is in no pain and is able to urinate. Denies urinary frequency or dysuria. She is tolerating full liquid diet so will advance to regular. Denies N/V, abdominal pain. Denies headache, changes in vision, fevers, chills, chest pain, shortness of breath, abdominal pain, pain/swelling of the extremities. She is s/p bilateral uretal stent placement on 03/06. Objective - Vital Signs/Intake and Output Vital Signs (last 24 hours): Temp Pulse Resp BP Pulse Ox 97.8 F 77 20 125/66 98 03/08/17 01:04 03/08/17 01:04 03/08/17 01:04 03/08/17 01:04 03/08/17 01:04 Intake and Output: 03/08/17 03/08/17 06:59 18:59 Intake Total 3900 Balance 3900 - Medications Medications: Current Medications Bisoprolol Fumarate (Zebeta) 5 mg PO DAILY [facility] Last Admin: 03/07/17 10:29 Dose: 5 mg Ciprofloxacin (Cipro) 500 mg PO BID [facility] Last Admin: 03/07/17 17:42 Dose: 500 mg Dextrose/Sodium Chloride (Dextrose 5%/0.9% Ns 1000 Ml) 1,000 mls @ 200 mls/hr IV .Q5H [facility] Last Admin: 03/08/17 00:15 Dose: Not Given Sodium Chloride (Sodium Chloride 0.9%) 1,000 mls @ 200 mls/hr IV .Q5H [facility] Last Admin: 03/08/17 00:20 Dose: 200 mls/hr Insulin Human Regular (Novolin R) 0 unit SC ACHS [facility] PRN Reason: Protocol Last Admin: 03/07/17 22:16 Dose: Not Given Morphine Sulfate (Morphine) 2 mg IVP Q4H PRN PRN Reason: Pain, moderate (4-7) Ondansetron HCl (Zofran Inj) 4 mg IVP Q6 PRN PRN Reason: Nausea/Vomiting - Labs Labs: 03/07/17 08:17 03/07/17 08:17 - Constitutional Appears: Non-toxic, No Acute Distress - Head Exam Head Exam: ATRAUMATIC, NORMAL INSPECTION - Eye Exam Eye Exam: EOMI, Normal appearance, PERRL Pupil Exam: NORMAL ACCOMODATION - ENT Exam ENT Exam: Mucous Membranes Moist - Respiratory Exam Respiratory Exam: Clear to Ausculation Bilateral, NORMAL BREATHING PATTERN - Cardiovascular Exam Cardiovascular Exam: REGULAR RHYTHM, +S1, +S2 - GI/Abdominal Exam GI & Abdominal Exam: Soft, Normal Bowel Sounds. absent: Distended, Guarding, Tenderness - Extremities Exam Extremities Exam: Normal Inspection. absent: Calf Tenderness - Back Exam Back Exam: NORMAL INSPECTION. absent: CVA tenderness (L), CVA tenderness (R), paraspinal tenderness - Neurological Exam Neurological Exam: Alert, Awake, CN II-XII Intact, Normal Gait, Oriented x3 Neuro motor strength exam: Left Upper Extremity: 5, Right Upper Extremity: 5, Left Lower Extremity: 5, Right Lower Extremity: 5 - Psychiatric Exam Psychiatric exam: Normal Affect, Normal Mood - Skin Skin Exam: Dry, Intact, Normal Color, Warm Assessment and Plan - Assessment and Plan (Free Text) Assessment: Assessment: 61 F with PMHX DM, HTN, nephrolithiasis admitted for acute pancreatitis and acute kidney injury due to obstructing caluculi with b/l hydronephrosis: Plan: Bilateral obstructing Renal Calculi with b/l hydronephrosis per CT scan status post b/l ureter stent placement on 03/06 Dr. Alarcon urology consulted, help appreciated Patient is cleared for surgery EKG/Chest X ray reviewed Labs/coags ordered BUN/Cr 67/5.4 will repeat this afternoon BUN/CR 86/9.2 on admission Cipro 500mg PO BID (started 03/06) f/u am labs Acute kidney injury Improving secondary to obstructing renal calculi status post b/l ureter stent placement on 03/06 BUN/Cr 34/1.9, 67/5.4, 86/9.2 on admission Nephrology consulted, Shannan Saunders, help appreciated NS at 200 cc/hour Pancreatitis improving - no nausea/vomiting, no abdominal pain abdominal u/s suggestive of fatty liver, no gallstones (please see full report) Lipase 2378 CLD given 3 L of fluids in ED NS at 200 cc/hour T Total Chol: 216 LDL: 103 HDL: 27 consider SAM and statin use once kidney function improves DM Accuchecks ISS hold home med Glipizde 2.5 mg PO daily HgbA1C: 9.7 HTN Bisoprolol 5mg PO daily Hold HCTC 6.25 mg PO daily monitor BP controlled Lung nodule Incidental finding on CT 6 mm - f/u CT rec in 6-12 months pt aware and states she will f/u R adnexal mass Incidental finding 5.5cm recommend transvaginal u/s - pt states that she is aware of mass and is refusing u/s, stating "this has been checked out before and it is fine" Prophylactic Measures Full liquid diet - advance as tolerated Pepcid IV SCDs - pt is ambulating NS @ 200 cc/hr
[2017-03-08 07:29] LABS: BASO % 0.5 % (0.0-2.0); EOS # 0.1 K/uL (0.0-0.7); EOS % 2.1 % (0.0-4.0); HEMATOCRIT 32.5 % (34.0-47.0); LYMPH # 1.4 K/uL (1.0-4.3); LYMPH % 21.1 % (20.0-40.0); MEAN CELL VOLUME 80.1 fL (81.0-99.0); MEAN CORPUSCULAR HEMOGLOBIN 27.4 pg (27.0-31.0); MEAN CORPUSCULAR HGB CONC 34.2 g/dL (33.0-37.0); MEAN PLATELET VOLUME 7.3 fL (7.2-11.7); MONO # 0.5 K/uL (0.0-0.8); RED CELL DISTRIBUTION WIDTH 14.2 % (11.5-14.5); WHITE BLOOD COUNT 6.8 K/uL (4.8-10.8)
[2017-03-08 07:32] LABS: POTASSIUM 4.3 mmol/L (3.6-5.2)
[2017-03-08 07:34] LABS: BILIRUBIN,TOTAL 0.8 mg/dL (0.2-1.3)
[2017-03-08 07:35] LABS: PHOSPHOROUS 3.1 mg/dL (2.5-4.5); TOTAL PROTEIN 6.4 g/dL (6.3-8.3); URIC ACID 6.6 mg/dL (2.2-7.5)
[2017-03-08 07:36] LABS: CALCIUM 7.7 mg/dl (8.6-10.4); MAGNESIUM 1.2 mg/dL (1.6-2.3)
[2017-03-08 08:33] VITALS: TEMP 97.6; O2SAT 95
[2017-03-08] MEDS: (Novolin R) Insulin Human Regular 100 units/ml vial SC SCH ×2 (08:58→13:08)
[2017-03-08 10:33] VITALS: BP 137/76
--- NOTE | 2017-03-08 12:53 | CP.PCM.DIS ---
Provider - Provider Date of Admission: 03/06/17 16:42 Attending physician: Ross Benavidez MD Hospital Course - Lab Results Lab Results: Most Recent Lab Values WBC 6.8 K/uL (4.8-10.8) 03/08/17 07:12 RBC 4.06 Mil/uL (3.80-5.20) 03/08/17 07:12 Hgb 11.1 g/dL (11.0-16.0) 03/08/17 07:12 Hct 32.5 % (34.0-47.0) L 03/08/17 07:12 MCV 80.1 fL (81.0-99.0) L 03/08/17 07:12 MCH 27.4 pg (27.0-31.0) 03/08/17 07:12 MCHC 34.2 g/dL (33.0-37.0) 03/08/17 07:12 RDW 14.2 % (11.5-14.5) 03/08/17 07:12 Plt Count 323 K/uL (130-400) 03/08/17 07:12 MPV 7.3 fL (7.2-11.7) 03/08/17 07:12 Neut % (Auto) 68.3 % (50.0-75.0) 03/08/17 07:12 Lymph % (Auto) 21.1 % (20.0-40.0) 03/08/17 07:12 [place] % (Auto) 8.0 % (0.0-10.0) 03/08/17 07:12 Eos % (Auto) 2.1 % (0.0-4.0) 03/08/17 07:12 Baso % (Auto) 0.5 % (0.0-2.0) 03/08/17 07:12 Neut # 4.6 K/uL (1.8-7.0) 03/08/17 07:12 Lymph # 1.4 K/uL (1.0-4.3) 03/08/17 07:12 [place] # 0.5 K/uL (0.0-0.8) 03/08/17 07:12 Eos # 0.1 K/uL (0.0-0.7) 03/08/17 07:12 Baso # 0.0 K/uL (0.0-0.2) 03/08/17 07:12 Neutrophils % (Manual) 88 % (50-75) H 03/06/17 13:36 Lymphocytes % (Manual) 8 % (20-40) L 03/06/17 13:36 Monocytes % (Manual) 3 % (0-10) 03/06/17 13:36 Eosinophils % (Manual) 1 % (0-4) 03/06/17 13:36 Platelet Estimate Normal (NORMAL) 03/06/17 13:36 RBC Morphology Normal 03/06/17 13:36 Sodium 143 mmol/L (132-148) 03/08/17 07:12 Potassium 4.3 mmol/L (3.6-5.2) 03/08/17 07:12 Chloride 108 mmol/L (98-107) H 03/08/17 07:12 Carbon Dioxide 24 mmol/L (22-30) 03/08/17 07:12 Anion Gap 15 (10-20) 03/08/17 07:12 BUN 34 mg/dL (7-17) H 03/08/17 07:12 Creatinine 1.9 MG/DL (0.7-1.2) H 03/08/17 07:12 Est GFR ( Amer) 33 03/08/17 07:12 Est GFR (Non-Af Amer) 27 03/08/17 07:12 POC Glucose (mg/dL) 256 mg/dL (65-110) H 03/08/17 11:31 Random Glucose 145 mg/dL (65-105) H 03/08/17 07:12 Hemoglobin A1c 9.7 % (4.2-6.5) H 03/07/17 08:17 Uric Acid 6.6 mg/dL (2.2-7.5) 03/08/17 07:12 Calcium 7.7 mg/dl (8.6-10.4) L 03/08/17 07:12 Phosphorus 3.1 mg/dL (2.5-4.5) 03/08/17 07:12 Magnesium 1.2 mg/dL (1.6-2.3) L 03/08/17 07:12 Total Bilirubin 0.8 mg/dL (0.2-1.3) 03/08/17 07:12 AST 17 U/L (14-36) 03/08/17 07:12 ALT 19 U/L (9-52) 03/08/17 07:12 Alkaline Phosphatase 90 U/L (38-126) 03/08/17 07:12 Total Protein 6.4 g/dL (6.3-8.3) 03/08/17 07:12 Albumin 3.2 g/dL (3.5-5.0) L 03/08/17 07:12 Globulin 3.2 gm/dL (2.2-3.9) 03/08/17 07:12 Albumin/Globulin Ratio 1.0 (1.0-2.1) 03/08/17 07:12 Triglycerides 303 mg/dL (0-149) H 03/07/17 08:17 Cholesterol 216 mg/dL (0-199) H 03/07/17 08:17 LDL Cholesterol Direct 103 mg/dL (0-129) 03/07/17 08:17 HDL Cholesterol 27 mg/dL (30-70) L 03/07/17 08:17 Lipase 2378 U/L (23-300) H 03/06/17 13:36 Urine Color Yellow (YELLOW) 03/07/17 19:50 Urine Clarity Hazy (Clear) 03/07/17 19:50 Urine pH 5.0 (5.0-8.0) 03/07/17 19:50 Ur Specific [place] 1.009 (1.003-1.030) 03/07/17 19:50 Urine Protein 1+ mg/dL (NEGATIVE) H 03/07/17 19:50 Urine Glucose (UA) 1+ mg/dL (Normal) 03/07/17 19:50 Urine Ketones Negative mg/dL (NEGATIVE) 03/07/17 19:50 Urine Blood 3+ (NEGATIVE) H 03/07/17 19:50 Urine Nitrate Negative (NEGATIVE) 03/07/17 19:50 Urine Bilirubin Negative (NEGATIVE) 03/07/17 19:50 Urine Urobilinogen Normal mg/dL (0.2-1.0) 03/07/17 19:50 Ur Leukocyte Esterase 3+ [place]/uL (Negative) H 03/07/17 19:50 Urine WBC (Auto) 559 /hpf (0-5) H 03/07/17 19:50 Urine RBC (Auto) 710 /hpf (0-3) H 03/07/17 19:50 Urine WBC Clumps (Auto) Few /hpf (NONE) H 03/07/17 19:50 Ur Squamous Epith Cells 10 /hpf (0-5) H 03/07/17 19:50 Ur Transition Epith Cell 6 /hpf (0-3) H 03/07/17 19:50 Urine Bacteria Many (<OCC) H 03/07/17 19:50 - Hospital Course Hospital Course: Patient is stable for discharge per Nephrology. Patient is to follow up with her primary care Dr. Josue within one week of discharge for post hospital care. Patient is also to follow up with Dr. Alarcon, urology, for stent removal and further intervention outpatient. She is to take the following medications: Cipro 500mg one by mouth twice a day Bisoprolol 5mg one by mouth daily Glipizide 2.5 mg by mouth twice a day Patient is to return to the emergency room if symptoms return or persist. All instructions explained to the patient and she agrees. Discharge Exam - Head Exam Head Exam: ATRAUMATIC, NORMAL INSPECTION Discharge Plan - Discharge Medications Prescriptions: Bisoprolol [Zebeta] 5 mg PO DAILY #30 tab Ciprofloxacin [Cipro] 500 mg PO BID #14 tab - Follow Up Plan Condition: STABLE Disposition: HOME/ ROUTINE Additional Instructions: Patient is stable for discharge per Nephrology. Patient is to follow up with her primary care Dr. Josue within one week of discharge for post hospital care. Patient is also to follow up with Dr. Alarcon, urology, for stent removal and further intervention outpatient. She is to take the following medications: Cipro 500mg one by mouth twice a day Bisoprolol 5mg one by mouth daily Glipizide 2.5 mg by mouth twice a day Patient is to return to the emergency room if symptoms return or persist. All instructions explained to the patient and she agrees. Referrals: Kami Josue MD [Staff Provider] - Kain Alarcon MD [Staff Provider] - Linnette France MD [Staff Provider] -
[2017-03-08 12:59] LABS: RBC URINE 566 /hpf (0-3); URINE BACTERIA RARE (<OCC); URINE BILIRUBIN NEGATIVE (NEGATIVE); URINE BLOOD 3+ (NEGATIVE); URINE COLOR Yellow (YELLOW); URINE GLUCOSE (UA) 2+ mg/dL (Normal); URINE KETONE NEGATIVE (NEGATIVE); URINE LEUKOCYTE ESTERASE 2+ Leu/uL (Negative); URINE PROTEIN 2+ mg/dL (NEGATIVE); URINE UROBILINOGEN NORMAL mg/dL (0.2-1.0); WBC URINE 24 /hpf (0-5)
[2017-03-08 17:54] VITALS: PULSE 70
--- NOTE | 2017-03-10 13:11 | PROCN ---
DATE: 03/06/2017 This is a female admitted with bilateral flank pain and elevated BUN and creatinine. The patient had previous history of kidney stones. The patient was brought the OR, prepped and draped in the usual manner. A #21 cystourethroscope introduced into the bladder, 0.035 wires were inserted on either ayanna e, the right and left ureter. There was a large calculus noted in the right pelvis and a small calcu shari noted in the left pelvis with bilateral hydro. With the wires in place, Double-J stents were the n placed over the wire, right and left, and the wire removed. The stents were in good position. The patient tolerated the procedure well, left the OR in good condition. Donald Alarcon MD cc: [id number] TT: 03/10/2017 11:51:59 Confirmation # [id number] Dictation # [id number]
== END 2017-03-08 15:10 | disposition home or self-care (01) | DRG 567 ==
LOC: C.ER 11:51 → C.9E 16:42 → C.5T 23:38
PROVIDERS: ADMIT Internal Medicine; ATTEND Internal Medicine
PROC: 0T748DZ Dilation of Left Kidney Pelvis with Intraluminal Device, Via Natural or Artificial Opening Endoscopic (ICD-10-PCS; principal; 2017-03-07)
PROC: 0T738DZ Dilation of Right Kidney Pelvis with Intraluminal Device, Via Natural or Artificial Opening Endoscopic (ICD-10-PCS; 2017-03-07)
DX: N13.2 Hydronephrosis with renal and ureteral calculous obstruction (principal); K85.90 Acute pancreatitis without necrosis or infection, unspecified; N17.9 Acute kidney failure, unspecified; E86.0 Dehydration; I10 Essential (primary) hypertension; R91.1 Solitary pulmonary nodule; E11.9 Type 2 diabetes mellitus without complications; Z79.84 Long term (current) use of oral hypoglycemic drugs; Z83.3 Family history of diabetes mellitus; Z87.442 Personal history of urinary calculi